=== PATIENT | female | born 1985 | race Hispanic/Latino ===

== ENCOUNTER 2016-08-05 04:55 | Emergency (ER) | payer BC, OTHER ==
[2016-08-05 05:17] VITALS: BP 126/75; PULSE 84; RESP 16; TEMP 98; O2SAT 100
[2016-08-05] MEDS ORDERED: Sodium Chloride 0.9% 1,000 ML IV STA (05:32)
--- NOTE | 2016-08-05 05:44 | ED PDOC ---
HPI:Nausea, Vomiting, Diarrhea Time Seen by Provider: 08/05/16 05:15 Chief Complaint (Nursing): GI Problem Chief Complaint (Provider): Vomiting History Per: Patient History/Exam Limitations: no limitations Onset/Duration Of Symptoms: Hrs (x7) Current Symptoms Are (Timing): Still Present Context: Other (Combining drugs with alcohol) Associated Symptoms: Nausea, Vomiting. denies: Fever, Diarrhea, Urinary Symptoms Additional Complaint(s): 31 year old female presents to ED with complaints of vomiting x7 hours and has no past medical history. States she is prescribed 0.5mg Klonopin after her father and that she drank "more than she should have". Notes that the combination caused her to consistently vomit as well as fall on a hardwood floor, causing her tohit her right hand. (-) but no head trauma or LOC. no abdominal pain, diarrhea, fever, or urinary symptoms. PCP: [facility] Past Medical History Reviewed: Historical Data, Nursing Documentation, Vital Signs Vital Signs: Last Vital Signs Temp 98 F 08/05/16 05:14 Pulse 84 08/05/16 05:14 Resp 16 08/05/16 05:14 BP 126/75 08/05/16 05:14 Pulse Ox 100 08/05/16 05:14 - Medical History PMH: No Chronic Diseases - Surgical History Surgical History: No Surg Hx - Family History Family History: States: Unknown Family Hx - Social History Current smoker - smoking cessation education provided: Yes (Recently started smoking cigarettes) Alcohol: Occasional Drugs: Other (Klonopin (prescribed)) - Allergies Allergies/Adverse Reactions: Allergies Allergy/AdvReac Type Severity Reaction Status Date / Time cat dander Allergy ITCHING Verified 08/05/16 05:14 dog dander Allergy ITCHING Verified 08/05/16 05:14 Review of Systems ROS Statement: Except As Marked, All Systems Reviewed And Found Negative Constitutional: Negative for: Fever Gastrointestinal: Positive for: Nausea, Vomiting. Negative for: Abdominal Pain , Diarrhea Genitourinary Female: Negative for: Dysuria, Frequency, Incontinence, Hematuria Psych: Negative for: Anxiety, Depression, Psychosis, Suicidal ideation, Withdrawal Physical Exam - Reviewed Nursing Documentation Reviewed: Yes Vital Signs Reviewed: Yes - Physical Exam Appears: Positive for: Non-toxic, No Acute Distress Head Exam: Positive for: ATRAUMATIC Skin: Positive for: Normal Color, Warm, Dry Eye Exam: Positive for: Normal appearance, EOMI, PERRL ENT: Positive for: Normal ENT Inspection Neck: Positive for: Normal, Painless ROM, Supple Cardiovascular/Chest: Negative for: Murmur Respiratory: Positive for: Normal Breath Sounds. Negative for: Respiratory Distress Gastrointestinal/Abdominal: Positive for: Soft. Negative for: Tenderness Back: Positive for: Normal Inspection Extremity: Positive for: Normal ROM, Other ( R hand minimal swleling over R fifth digit. no bony stepoff or cellulitis. neurovascular intact. cap refill less than 2 sec. radial pulses 2+. ). Negative for: Deformity Neurologic/Psych: Positive for: Alert, senior product marketing manager II-XII, Oriented. Negative for: Motor/Sensory Deficits - Laboratory Results Result Diagrams: 08/05/16 05:40 08/05/16 05:40 - ECG O2 Sat by Pulse Oximetry: 100 (RA) Pulse Ox Interpretation: Normal Medical Decision Making Medical Decision Makin Initial impression: vomiting (no abd pain) r hand pain r/o fractured hand, r/o gastroenteritis Initial plan: * BETA HCG * Labs * XR HAND RT * Pepcid 20mg IVP * NS IV * Zofran Inj 4mg IV * Urine C&S * UA * Re-eval 0630 XR reviewed: negative for fractures Patient has tolerated PO and vomiting stopped. no pain. pt sleeping comfortably. Labs reviewed: within normal limits Upon re-evaluation, patient is feeling much better and is stable for discharge. Patient is medically stable and ready for discharge. Counseling has been provided and patient is in agreement. Return if symptoms persist or acutely worsen. Scribe Attestation: Documented by Kalpana Durand acting as a scribe for Gloria Giron. Scribe Attestation: All medical record entries made by the Scribe were at my direction and personally dictated by me. I have reviewed the chart and agree that the record accurately reflects my personal performance of the history, physical exam, medical decision making, and the department course for this patient. I have also personally directed, reviewed, and agree with the discharge instructions and disposition. Disposition - Clinical Impression Clinical Impression: Hand pain - Patient ED Disposition Is Patient to be Admitted: No Counseled Patient/Family Regarding: Studies Performed, Diagnosis, Need For Followup - Disposition Disposition: Routine/Home Disposition Time: 06:00 Condition: IMPROVED Additional Instructions: follow up with your primary doctor in 2 days do not mix your anxiety medications with alcohol return to ED with any worsening or concerning symptoms Instructions: Hand Sprain (ED), Arthralgia (ED) Forms: [facility] ED School/Work Excuse
[2016-08-05 05:56] LABS: RBC URINE 1 /hpf (0-3); URINE BACTERIA FEW (<OCC); URINE BILIRUBIN NEGATIVE (NEGATIVE); URINE BLOOD NEGATIVE (NEGATIVE); URINE COLOR YELLOW (YELLOW); URINE GLUCOSE (UA) NEG (Normal); URINE KETONE NEGATIVE (NEGATIVE); URINE LEUKOCYTE ESTERASE NEG Leu/uL (Negative); URINE PROTEIN NEGATIVE (NEGATIVE); URINE UROBILINOGEN 0.2-1.0 mg/dL (0.2-1.0); WBC URINE 3 /hpf (0-5)
[2016-08-05 05:58] LABS: BASO % 0.6 % (0.0-2.0); EOS # 0.1 K/uL (0.0-0.7); EOS % 1.4 % (0.0-4.0); HEMATOCRIT 40.7 % (34.0-47.0); LYMPH # 2.1 K/uL (1.0-4.3); LYMPH % 37.8 % (20.0-40.0); MEAN CORPUSCULAR HEMOGLOBIN 32.3 pg (27.0-31.0); MONO # 0.4 K/uL (0.0-0.8); MONO % 6.9 % (0.0-10.0); NEUT % 53.3 % (50.0-75.0); RED CELL DISTRIBUTION WIDTH 12.4 % (11.5-14.5); WHITE BLOOD COUNT 5.6 K/uL (4.8-10.8)
[2016-08-05 06:04] LABS: CHLORIDE 106 mmol/L (98-107); SODIUM 140 mmol/l (132-148)
[2016-08-05 06:07] LABS: ALB/GLOB RATIO 1.4 (1.0-2.1); ALKALINE PHOSPHATASE 36 U/L (38-126); ALT/SGPT 28 U/L (9-52); AST/SGOT 24 U/L (14-36); BILIRUBIN,TOTAL 0.7 mg/dl (0.2-1.3); BLOOD UREA NITROGEN 13 mg/dl (7-17); CARBON DIOXIDE 23 mmol/L (22-30); GFR AFRICAN-AMERICAN > 60; GLUCOSE,RANDOM 90 mg/dL (65-105); TOTAL PROTEIN 7.6 G/DL (6.3-8.2)
[2016-08-05 06:08] LABS: CALCIUM 9.1 mg/dL (8.4-10.2)
--- NOTE | 2016-08-05 09:28 | RAD ---
PROCEDURE: Right Hand Radiographs. HISTORY: Right hand pain, post fall COMPARISON: None. FINDINGS: BONES: Bone alignment and mineralization are normal. There is no acute fracture or bone destruction. . JOINTS: Normal. SOFT TISSUES: Normal. OTHER FINDINGS: None. IMPRESSION: No acute fracture or dislocation.
== END 2016-08-05 07:57 | disposition home or self-care (01) ==
LOC: H.ER 04:55
DX: R11.2 Nausea with vomiting, unspecified (principal); M79.641 Pain in right hand; W19.XXXA Unspecified fall, initial encounter; Y92.89 Other specified places as the place of occurrence of the external cause; F17.210 Nicotine dependence, cigarettes, uncomplicated